=== PATIENT | male | born 1980 | race Caucasian/White ===

== ENCOUNTER 2023-10-04 08:41 | Outpatient (CLI) | payer MEDICAID, SELFPAY ==
--- NOTE | 2023-10-04 08:45 | MR_ITS ---
WS: [id number] MRI BRAIN WITHOUT CONTRAST HISTORY: R56.9 - Unspecified convulsions COMPARISON: None available. TECHNIQUE: Diffusion imaging, multiplanar T1, T2 and FLAIR imaging obtained. Diffusion imaging is normal. Areas of gliosis and volume loss in the anterior medial frontal lobes bi laterally. Slightly greater increased T2 signal involving the RIGHT frontal lobe. No associated hemos iderin. No additional infarcts. Mild small vessel ischemic type changes. Increased focal area of T2 signal in the medial RIGHT temporal lobe. No cerebellar ischemic changes. Ventricles and extra-axial spaces are normal. No inferior displacement of cerebellar tonsils. The sella turcica and pituitary gland are unremarkabl e. Dural venous sinuses and [place] demonstrate no abnormality on this unenhanced studies. Paranasal sinuses: Mild mucoperiosteal thickening in the maxillary sinuses no air-fluid levels. Mastoid air cells: Normal. Calvarium and scalp: Intact. IMPRESSION: 1. No acute infarcts or diffusion abnormalities. 2. Bilateral mild volume loss and gliosis in the anterior medial frontal lobes. Mid this is likely f rom prior trauma due to its location and appearance. 3. Focal area of increased T2 signal in the medial RIGHT temporal lobe near the hippocampus. No volu me loss or other abnormality.
== END 2023-10-04 08:42 | disposition home or self-care (01) ==
PROVIDERS: Visit Provider Specialist
DX: G40.309 Generalized idiopathic epilepsy and epileptic syndromes, not intractable, without status epilepticus (principal); G93.89 Other specified disorders of brain
CPT/HCPCS: 70551

== ENCOUNTER → 2024-02-02 09:26 | Outpatient (BNVA) | payer MEDICAID, SELFPAY | PROVIDERS: Referring Provider Specialist; Visit Provider Physician Assistant | DX: G56.03 Carpal tunnel syndrome, bilateral upper limbs (principal); G56.22 Lesion of ulnar nerve, left upper limb | CPT/HCPCS: 73110 ==

== ENCOUNTER 2024-02-15 09:21 | Day surgery (SDC) | payer MEDICAID, SELFPAY ==
[2024-02-15] VITALS (12 sets, daily range): BP systolic 144–191; BP diastolic 96–127; PULSE 61–93; RESP 14–18; TEMP 36.1–36.6; O2SAT 96–100; BMI 20.7
[2024-02-15] MEDS: acetaminophen 1,000 MG/100 ML PIGGYBACK 400 MG IV (10:03)
[2024-02-15] MEDS: sodium chloride 0.9% 1,000 ML 30 ML IV (10:03)
[2024-02-15] MEDS: ketorolac 30 mg/mL INJ IVP (10:04)
--- NOTE | 2024-02-15 10:22 | SUR.PREOP ---
patient states he had an allergic reaction to PCN as a child but does not recall what the reaction was. patient states he has taken keflex as an adult with no problems.
--- NOTE | 2024-02-15 10:23 | W.PM.OPSUD ---
Surgery/Procedure H&P Update DATE OF PROCEDURE: February 15, 2024 DATE H&P PERFORMED: 02/02/24 H&P UPDATE INFORMATION: I have reviewed H&P completed within last 30 days, I have examined patient prior to procedure and No changes to prior documentation PREOP DIAGNOSIS: Left cubital tunnel syndrome, left carpal tunnel syndrome PRIMARY INDICATION FOR PROCEDURE: Left carpal tunnel syndrome, left cubital tunnel syndrome PLANNED PROCEDURE: Operation Date: 02/15/24 10:55 Proposed Procedures p Carpal Tunnel Release(Left) - DO yvon Junior Cubital Tunnel Release(Left) - DO yvon Junior Ulnar Nerve Transposition/ possible(Left) - Issac Blunt DO
--- NOTE | 2024-02-15 10:34 | P.ANESASSM_ITS ---
Pre-Anesthetic Assessment Height/Weight: Height 1.85 m Weight 71.214 kg Temp Pulse Resp BP Pulse Ox O2 Del Method 97.9 F 78 18 144/100 98 Room Air 02/15/24 10:12 02/15/24 10:12 02/15/24 10:12 02/15/24 10:12 02/15/24 10:12 02/15/24 10:12 Preop Diagnosis: Left cubital tunnel syndrome, left carpal tunnel syndrome Operation Date: 02/15/24 10:55 Proposed Procedures p Carpal Tunnel Release(Left) - Issac Merlene, DO s Cubital Tunnel Release(Left) - Issac [place], DO s Ulnar Nerve Transposition/ possible(Left) - Issac [place], DO Familial anesthetic complications: none Was Beta Uzair taken within 24 hours: N/A Was Clonidine taken within 24 hours: N/A Last intake: Intake Last Liquid Date 02/14/24 Last Liquid Time 21:00 Last Solid Date 02/14/24 Last Solid Time 21:00 Social Alcohol (Daily) and Tobacco Exam alert, oriented x 3 and regular rate & rhythm Airway Submandibular: within normal limits Cervical ROM: within normal limits Mallampati: Class II Dentition: false Pulmonary Chronic Obstructive Pulmonary Disease Neuropsych Seizure Anesthetic Plan ASA status: 3 Anesthesia: General Medications/Allergies Home Medications Medication Instructions Recorded Confirmed Last Taken Type lamotrigine 100 mg tablet,extended 100 mg PO DAILY #30 tabs 12/16/23 02/14/24 02/15/24 Rx release 24 hr (Lamictal XR) levetiracetam 750 mg 1,500 mg (2 x 750 mg) PO DAILY 12/16/23 02/14/24 02/15/24 Rx tablet,extended release 24 hr #240 tabs (Keppra XR) Allergies Allergy/AdvReac Type Severity Reaction Status Date / Time Penicillins Allergy Intermediate Unknown Verified 02/15/24 09:50 Current Medications Generic Name Dose Route Start Last Admin Trade Name Freq PRN Reason Stop Dose Admin Sodium Chloride 1,000 mls @ 30 mls/hr 02/15/24 10:00 02/15/24 10:03 Sodium Chloride 0.9% IV 02/16/24 09:59 30 mls/hr .Q24H HARMEET Administration PFSH Anesthesia Social History Smoking and tobacco/nicotine status: current every day tobacco/nicotine user cigarettes Second hand smoke exposure: Yes Alcohol intake: current Alcohol type: beer Substance/Drug Use: current Data Anesthesia Cardiac Studies: No Data to Display
[2024-02-15] MEDS: ceFAZolin 2,000 MG in sodium chloride 0.9% (plus) 50 ML 100 MG IV (10:39)
[2024-02-15] MEDS: lidocaine-epi 1% 20 mL INJ INJECTION (11:12)
[2024-02-15] MEDS: ROPivacaine 0.5% SDV 30 mL 150 MG INJECTION (11:12)
--- NOTE | 2024-02-15 12:09 | W.PM.BPON ---
Date of Procedure: [02/15/2024] Surgeon: Issac Blunt DO Stone Operator(s): None Procedure(s) performed: Left carpal tunnel release Left cubital tunnel release (decompression ulnar nerve at the elbow) Left ulnar nerve transposition with neurolysis Findings of the procedure(s): Patient found to have left carpal tunnel syndrome left cubital tunnel syndrome as well as a unstable/subluxating ulnar nerve and as result underwent left carpal tunnel release left cubital tunnel release with ulnar nerve transposition without any issues or complications Maribel drain placed will get into OT hand therapy for drain pull within the next 2 days. Maintain splint for a total of 10 to 14 days. Estimated blood loss: 15 mL Specimen(s) removed: None Post-operative diagnosis: Left carpal tunnel syndrome left cubital tunnel syndrome with subluxating ulnar nerve
--- NOTE | 2024-02-15 12:11 | PM.OP ---
Operative Report Date of procedure: February 15, 2024 Surgeon: Issac Blunt DO Procedure: Preoperative diagnosis: Left carpal tunnel syndrome Left cubital tunnel syndrome post-op diagnosis:? Left carpal tunnel syndrome and Left cubital tunnel syndrome and subluxating ulnar nerve Post-op findings: See operative note Procedure done: Left carpal tunnel release Left cubital tunnel release(ulnar nerve decompression) Left ulnar nerve?transposition and neurolysis Surgeon: Issac Blunt DO Estimated blood loss: 15 cc Tourniquet Time: 33 minutes IV fluids: See anesthesia record Complications: None Findings: See operative report narrative Condition: stable Disposition: same day Brief History: Patient is a pleasant 43-year-old Male was seen evaluated in the outpatient setting for Left ulnar nerve neuropathy at the elbow and Left carpal tunnel syndrome. Patient had NCS findings consistent with this.? ?On my examination in the office patient findings are consistent with this preoperative diagnosis. We had detailed discussion in office about continued nonoperative intervention versus operative intervention.? Patient understands the risk benefits complications alternatives to surgical and nonsurgical treatment options.? Patient understands the risks include but not limited to make it better, make it worse, infection, permanent injury to nerve, decreased function and sensation to the hand with persistent weakness.? Given these risks patient understands and agrees to proceed with current plan.? Patient elects to proceed with a surgical mention. All questions answered. Procedure: Patient was seen and evaluated in the preoperative holding area.? The consent that was filled out in office was reviewed with patient. Correct extremity was then marked.? Patient was seen evaluated by the preoperative team as well as anesthesia department.? Once cleared for surgery patient was then taken to the operative suite and transported onto the operative table all bony prominences were well-padded and patient was secured to the table.? Left upper extremity was placed on an armboard.? Patient then underwent anesthesia per the anesthesia department. The Left upper extremity tourniquet was applied. Patient's Left upper extremity was then prepped and draped in standard orthopedic fashion.? This point a final timeout was performed. Patient received appropriate preop antibiotics. Esmarch tourniquet was used to exsanguinate the operative extremity and was insufflated to 250 mmHg.? I started with the carpal tunnel release first.? I made a standard open carpal tunnel release starting with the distal most extent in the palm at the Escamilla's cardinal line and the incision line was made in line with the fourth ray and ended just distal to the wrist crease.? Sharp scalpel incision was made through skin and subcutaneous tissue I then utilizing self retainer then began to dissect with dissection scissors split longitudinally the palmar fascia.? Next I then utilizing my nurses medical assistants phlebotomists Janine retractors subsequently utilizing scalpel feathered through the palmaris brevis as well as through the transverse carpal ligament distally.? Once I encountered the floor of the transverse carpal ligament and entered into the carpal tunnel I then switched to dissection scissors.? Carefully released the distal extent of the transverse carpal ligament to the palmar fat.? Care was to protect the recurrent branch and not injured this during this part of the case.? Next I then placed a [place] underneath the transverse carpal ligament proximally to protect the nerve in the carpal tunnel contents.? And then I subsequently under loupe magnification utilize my dissection scissors to release the transverse carpal ligament into the antebrachial fascia under direct visualization with care to keep my scissors with a curved ulnarly away from the palmar cutaneous branch.? The transverse carpal was then completely decompressed proximally and a [place] was then placed both distally and proximally throughout the carpal tunnel and had complete decompression of the nerve.? The nerve did appear to have hourglass shape as it went through the carpal tunnel.? With significant irritation noted around the nerve.? No masses were noted within the contents of the carpal tunnel.? This completed the carpal tunnel release and then I subsequently irrigated the wound bed and placed a wet [place] into the incision for later closure. Standard curvilinear incision was made centering over the ulnar nerve between the medial epicondyle and olecranon process.? Sharp scalpel excision through skin and subcutaneous tissue was performed.? Once I encountered subcutaneous tissue I then utilized dissection scissors to spread in the path of the [facility] and care was made to protect any nerve branches throughout this case.? I then utilized a scalpel to complete my dissection directly on over to the flexor pronator mass and elevated this fat tissue directly off of the fascia.? I started my dissection of the ulnar nerve the nerve proximally.? Once identified I then utilized Littler dissection scissors and decompress the nerve completely and proximally and utilized blunt dissection to make sure there was no entrapment proximally..? Once decompressed proximally I then traced the nerve distal through Merritt's ligament and as it entered the FCU fascia aponeurosis and completed by decompression and ulnar nerve neurolysis distally.? The nerve was completely released in situ no areas of entrapment I was able to place my finger distally and proximally with no areas entrapment along the nerve.? At this point in time by in situ release was completed I then subsequently took the elbow through range of motion and subluxation was noted over the medial epicondyle and plan for ulnar nerve?transposition?was made.? ?I thoroughly irrigated the nerve throughout the case to prevent it from drying out. Of note the ulnar nerve had significant irritation and inflammation.? Next while protecting the nerve as well as care to not injure any venous structures I then excised the intermuscular septum proximally with bipolar electrocautery.? This allowed for there to be no entrapment proximally with my?transposition.? Next I then performed my standard Z- flap into the fascia.? This created a large thick fascial band that would be sutured to secure the ulnar nerve when its been transposed.? Once the incision was made just through the fascia I then mobilized just the fascia and freed the muscle belly off of this.? I then sequentially excised the T and Y shaped fascial bands throughout the flexor pronator mass to prevent any type of bandage strip structure irritating the?transposition.? At this point I had only soft tissue and muscle belly with which the ulnar nerve could rest.? I had to do a small excision of the muscle belly distally to create a nice trough for the nerve to lie.? At this point I then mobilized the nerve and this was transposed into the flexor pronator insertion under the fasica flaps.? There was no evidence of kinking/tethering of the nerve.? this was significantly redundant and lax with no signs of tension or entrapment.? I then utilized a 3-0 Ethibond suture and approximated the fascia flaps that was created and the Left knee okay okay secured with horizontal interrupted mattress stitches.? I was able to place 2 fingers under the repair with no evidence of entrapment and the elbow was taken through range of motion and no areas of entrapment or kinking were noted on the nerve and the nerve was redundant relaxed in all ranges of motion.? This completed my ulnar nerve decompression of the cubital tunnel as well as ulnar nerve?transposition.? Wound bed was then thoroughly irrigated.? Tourniquet was deflated.? Maintained exact hemostasis with bipolar electrocautery.? I did place a marina drain to prevent hematoma formation. As result the skin was reapproximated with interrupted Vicryl subcutaneous suture 3-0.? I next utilized a running horizontal mattress stitch with 3-0 nylon.? Extremity was then cleaned and the incision was then covered with Xeroform 4 x 4's ABD Curlex and soft roll and a cubital splint was then applied with an Jorden wrap.? Patient was then awakened from anesthesia and taken to PACU in stable condition. Disposition: Patient taken to PACU in stable condition.? Patient given appropriate discharge instructions as well as pain medication.? We will get Patient in with OT hand therapy for splint takedown dressing change and drain pull. Patient will see me in office in 2 weeks.? pt understands? if they has any questions they can contact the office.
[2024-02-15] MEDS: metoprolol tartrate 1 mg/1 mL SDV 5 mL 5 MG (12:35)
[2024-02-15] MEDS: HYDROcodone-acetaminophen 5-325 mg Tablet 1 TAB PO (13:16)
--- NOTE | 2024-02-15 15:18 | ANE.PACU2 ---
Inpatient post-anesthesia follow up: Airway intact: Yes Vital signs: Temperature 97.5 F Pulse Rate 61 Respiratory Rate 18 Blood Pressure 166/96 Pulse Oximetry 100 Oxygen Delivery Me thod Room Air Oxygen Flow Rate 6 Fraction of Inspir ed Oxygen Hydration adequate: Yes Nausea and vomiting: No Pain level: 3 Mental status: Baseline
== END 2024-02-15 13:25 | disposition home or self-care (01) ==
PROVIDERS: PCP Family Medicine; Visit Provider Student in an Organized Health Care Education/Training Program
PROC: (CPT 64721; principal; 2024-02-15 10:45)
PROC: (CPT 64718; 2024-02-15 10:45)
PROC: (CPT 64718; 2024-02-15 10:45)
DX: G56.02 Carpal tunnel syndrome, left upper limb (principal); G56.22 Lesion of ulnar nerve, left upper limb; J44.9 Chronic obstructive pulmonary disease, unspecified; F17.210 Nicotine dependence, cigarettes, uncomplicated
CPT/HCPCS: 64718; 64721; J0131; J0690; J1100; J1885; J2250; J2405; J2704; J2795; J3490; J7030

== ENCOUNTER 2024-02-17 12:11 | Outpatient (RCR) | payer MEDICAID, SELFPAY | END 2024-03-06 23:59 | disposition home or self-care (01) | LOC: SOT 12:11 | PROVIDERS: Visit Provider Student in an Organized Health Care Education/Training Program | DX: Z47.89 Encounter for other orthopedic aftercare (principal) | CPT/HCPCS: 97110; 97530; 97760; L3763 ==

== ENCOUNTER 2024-03-16 10:18 | Outpatient (RCR) | payer MEDICAID, SELFPAY | END 2024-04-06 23:59 | disposition home or self-care (01) | LOC: SOT 10:18 | PROVIDERS: Visit Provider Student in an Organized Health Care Education/Training Program | DX: Z47.89 Encounter for other orthopedic aftercare (principal) | CPT/HCPCS: 97110 ==

== ENCOUNTER 2024-07-19 07:29 | Day surgery (SDC) | payer MEDICAID, SELFPAY ==
[2024-07-19] VITALS (10 sets, daily range): BP systolic 125–158; BP diastolic 72–90; PULSE 58–79; RESP 16–18; TEMP 36.1–36.6; O2SAT 97–100; BMI 19.2
[2024-07-19] MEDS: scopolamine 1.5 Patch 1 PATCH TRANSDERMA (08:02)
[2024-07-19] MEDS: ketorolac 30 mg/mL INJ IVP (08:03)
[2024-07-19] MEDS: sodium chloride 0.9% 1,000 ML 30 ML IV (08:06)
[2024-07-19] MEDS: acetaminophen 1,000 MG/100 ML PIGGYBACK 400 MG IV (08:06)
--- NOTE | 2024-07-19 08:21 | P.ANESASSM_ITS ---
Pre-Anesthetic Assessment Height/Weight: Height 1.83 m Weight 64.41 kg Temp Pulse Resp BP Pulse Ox O2 Del Method 97.8 F 70 18 132/89 98 Room Air 07/19/24 07:46 07/19/24 07:46 07/19/24 07:46 07/19/24 07:46 07/19/24 07:46 07/19/24 07:46 Operation Date: 07/19/24 09:00 Proposed Procedures p Carpal Tunnel Release(Right) - Issac [place], DO s Cubital Tunnel Release(Right) - Issac Merlene, DO s Ulnar Nerve Transposition(Right) - Issac Hemphill, DO Familial anesthetic complications: None Was Beta Uzair taken within 24 hours: N/A Was Clonidine taken within 24 hours: N/A Last intake: Intake Last Liquid Date 07/18/24 Last Liquid Time 02:20 Last Solid Date 07/18/24 Last Solid Time 22:00 Social Alcohol (6 pack a beer a night) and Tobacco Exam alert, oriented x 3, clear to auscultation bilaterally and regular rate & rhythm Airway Mallampati: Class II Dentition: other (no teeth) Neuropsych Seizure (epilepsy - last seizure was months ago) Anesthetic Plan ASA status: 3 Anesthesia: General Risk of > 500 ml blood loss (7ml/kg in children): No Medications/Allergies Home Medications Medication Instructions Recorded Confirmed Last Taken Type lamotrigine 100 mg tablet,extended 100 mg PO DAILY #90 tabs 06/19/24 07/18/24 07/19/24 Rx release 24 hr (Lamictal XR) levetiracetam 750 mg 1,500 mg (2 x 750 mg) PO DAILY 06/19/24 07/18/24 07/19/24 Rx tablet,extended release 24 hr #180 tabs (Keppra XR) Allergies Allergy/AdvReac Type Severity Reaction Status Date / Time Penicillins Allergy Intermediate Unknown Verified 07/18/24 11:07 Current Medications Generic Name Dose Route Start Last Admin Trade Name Freq PRN Reason Stop Dose Admin Sodium Chloride 1,000 mls @ 30 mls/hr 07/19/24 07:45 07/19/24 08:06 Sodium Chloride 0.9% IV 07/20/24 07:44 30 mls/hr .Q24H HARMEET Administration PFSH Anesthesia Social History Smoking and tobacco/nicotine status: current every day tobacco/nicotine user (1 pack a day) cigarettes Second hand smoke exposure: Yes Alcohol intake: current Alcohol type: beer Substance/Drug Use: current Data Anesthesia Cardiac Studies: No Data to Display
--- NOTE | 2024-07-19 08:26 | W.PM.OPSFHP ---
Same Day Surgery H&P Indication for Procedure/HPI DATE OF PROCEDURE: July 19, 2024 CHIEF COMPLAINT/INDICATIONFOR SURGICAL PROCEDURE: Right carpal tunnel syndrome, right cubital tunnel syndrome PREOP DIAGNOSIS: Right carpal tunnel syndrome, right cubital tunnel syndrome PLANNED PROCEDURE: Operation Date: 07/19/24 09:00 Proposed Procedures p Carpal Tunnel Release(Right) - Issac [place], DO s Cubital Tunnel Release(Right) - Issac [place], DO s Ulnar Nerve Transposition(Right) - Issac Merlene, DO Medications/Allergies* Allergies/Adverse Reactions Allergy/AdvReac Type Severity Reaction Status Date / Time Penicillins Allergy Intermediate Unknown Verified 07/18/24 11:07 Current Medications: Generic Name Dose Route Start Last Admin Trade Name Freq PRN Reason Stop Dose Admin Sodium Chloride 1,000 mls @ 30 mls/hr 07/19/24 07:45 07/19/24 08:06 Sodium Chloride 0.9% IV 07/20/24 07:44 30 mls/hr .Q24H HARMEET Administration Pertinent History/Comorbid Conditions* Social History Smoking and tobacco/nicotine status: current every day tobacco/nicotine user (1 pack a day) cigarettes Second hand smoke exposure: Yes Alcohol intake: current Alcohol type: beer Substance/Drug Use: current Pertinent Exam Findings alert, oriented x 3, operative site marked and procedure specific exam findings Please refer to detailed orthopedic examination on 05/31/2024 listed below: Right side- Hand exam-Positive Tinel's and Positive Phalen's test. no thenar atrophy and no thenar muscle weakness. Full range of motion in fingers and wrist and fingers are warm and well-perfused with normal cap refill under 2 seconds. Radial pulse 2+, No intrinsic muscle weakness noted. Elbow exam-Positive Tinel's test Recommendations Surgery/Procedure today Other Plans: Plan to proceed to the OR today for right carpal tunnel release, right cubital tunnel release with possible nerve transposition. Patient had the procedure done left-sided and satisfied with his results at this time. Patient understands the ins and outs procedure as well as the risk benefits complication alternatives of surgery and through shared decision make elects proceed with surgical intervention. All questions been answered at this time. Will proceed with the OR today. Coding Level of Care Code Acute Code for [facility] Fwd
[2024-07-19] MEDS: ceFAZolin 2,000 MG in sodium chloride 0.9% (plus) 50 ML 100 MG IV (08:45)
[2024-07-19] MEDS: lidocaine-epi 1% 20 mL INJ INJECTION (10:01)
[2024-07-19] MEDS: ROPivacaine 0.5% SDV 30 mL 150 MG INJECTION (10:01)
--- NOTE | 2024-07-19 10:06 | PC.NURSE ---
marina drain used as a drain in right elbow
--- NOTE | 2024-07-19 10:15 | P.BOP_ITS ---
Date of Procedure: 07/19/2024 Surgeon: Issac Blunt DO Lead Systems Architect(s): None Procedure(s) performed: Right carpal tunnel release Right cubital tunnel release Right ulnar nerve transposition Findings of the procedure(s): Patient found to have right carpal tunnel syndrome right cubital tunnel syndrome underwent procedure as planned without issues or complications patient was found to have a subluxating ulnar nerve and underwent a ulnar nerve transposition of the right elbow as well. Placed in a splint. Taken to PACU in stable condition postoperatively. Will follow-up within the next day for Myron drain removal and dressing takedown Estimated blood loss: 15 mL Specimen(s) removed: None Post-operative diagnosis: Right carpal tunnel syndrome, right cubital tunnel syndrome with subluxating ulnar nerve
--- NOTE | 2024-07-19 10:15 | P.OP_ITS ---
Operative Report Date of procedure: July 19, 2024 Surgeon: Issac Blunt DO Procedure: Preoperative diagnosis: Right carpal tunnel syndrome Right?cubital tunnel syndrome post-op diagnosis:? 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 Patient had NCS findings consistent with this.? ?On my examination in the office patient findings are consistent with this preoperative diagnosis. We had detailed discussion in office about continued nonoperative intervention versus operative intervention.? Patient understands the risk benefits complications alternatives to surgical and nonsurgical treatment options.? Patient understands the risks include but not limited to make it better, make it worse, infection, permanent injury to nerve, decreased function and sensation to the hand with persistent weakness.? Given these risks patient understands and agrees to proceed with current plan.? Patient elects to proceed with a surgical intervention of a right carpal tunnel release and right cubital tunnel release with possible ulnar nerve transposition. All questions answered. Procedure: Patient was seen and evaluated in the preoperative holding area.? The consent that was filled out in office was reviewed with patient. Correct extremity was then marked.? Patient was seen evaluated by the preoperative team as well as anesthesia department.? Once cleared for surgery patient was then taken to the operative suite and transported onto the operative table all bony prominences were well-padded and patient was secured to the table.? Right upper extremity was placed on an armboard.? Patient then underwent anesthesia per the anesthesia department. The Right upper extremity tourniquet was applied. Patient's Right upper extremity was then prepped and draped in standard orthopedic fashion.? This point a final timeout was performed. Patient received appropriate preop antibiotics. Esmarch tourniquet was used to exsanguinate the operative extremity and was insufflated to 250 mmHg.? I started with the carpal tunnel release first.? I made a standard open carpal tunnel release starting with the distal most extent in the palm at the Escamilla's cardinal line and the incision line was made in line with the fourth ray and ended just distal to the wrist crease.? Sharp scalpel incision was made through skin and subcutaneous tissue I then utilizing self retainer then began to dissect with dissection scissors split longitudinally the palmar fascia.? Next I then utilizing my food and nutrition services assistant Janine retractors subsequently utilizing scalpel feathered through the palmaris brevis as well as through the transverse carpal ligament distally.? Once I encountered the floor of the transverse carpal ligament and entered into the carpal tunnel I then switched to dissection scissors.? Carefully released the distal extent of the transverse carpal ligament to the palmar fat.? Care was to protect the recurrent branch and not injured this during this part of the case.? Next I then placed a Kimberly underneath the transverse carpal ligament proximally to protect the nerve in the carpal tunnel contents.? And then I subsequently under loupe magnification utilize my dissection scissors to release the transverse carpal ligament into the antebrachial fascia under direct visualization with care to keep my scissors with a curved ulnarly away from the palmar cutaneous branch.? The transverse carpal was then completely decompressed proximally and a Kimberly was then placed both distally and proximally throughout the carpal tunnel and had complete decompression of the nerve.? The nerve did appear to have hourglass shape as it went through the carpal tunnel.? With significant irritation noted around the nerve.? No masses were noted within the contents of the carpal tunnel.? This completed the carpal tunnel release and then I subsequently irrigated the wound bed and placed a wet Ray-Jeannie into the incision for later closure. Standard curvilinear incision was made centering over the ulnar nerve between the medial epicondyle and olecranon process.? Sharp scalpel excision through skin and subcutaneous tissue was performed.? Once I encountered subcutaneous t issue I then utilized dissection scissors to spread in the path of the [facility] and care was made to protect any nerve branches throughout this case.? I then utilized a scalpel to complete my dissection directly on over to the flexor pronator mass and elevated this fat tissue directly off of the fascia.? I started my dissection of the ulnar nerve the nerve proximally.? Once identified I then utilized Littler dissection scissors and decompress the nerve completely and proximally and utilized blunt dissection to make sure there was no entrapment proximally..? Once decompressed proximally I then traced the nerve distal through Merritt's ligament and as it entered the FCU fascia aponeurosis and completed by decompression and ulnar nerve neurolysis distally.? The nerve was completely released in situ no areas of entrapment I was able to place my finger distally and proximally with no areas entrapment along the nerve.? At this point in time by in situ release was completed I then subsequently took the elbow through range of motion and subluxation was noted over the medial epicondyle and plan for ulnar nerve?transposition?was made.? ?I thoroughly irrigated the nerve throughout the case to prevent it from drying out. Of note the ulnar nerve had significant irritation and inflammation.? Next while protecting the nerve as well as care to not injure any venous structures I then excised the intermuscular septum proximally with bipolar electrocautery.? This allowed for there to be no entrapment proximally with my?transposition.? Next I then performed my standard Z- flap into the fascia.? This created a large thick fascial band that would be sutured to secure the ulnar nerve when its been transposed.? Once the incision was made just through the fascia I then mobilized just the fascia and freed the muscle belly off of this.? I then sequentially excised the fascial bands throughout the flexor pronator mass to prevent any type of banded structures irritating the?transposition.? At this point I had only soft tissue and muscle belly with which the ulnar nerve could rest.? I had to do a small excision of the muscle belly distally to create a nice trough for the nerve to lie.? At this point I then mobilized the nerve and this was transposed into the flexor pronator insertion under the fasica flaps.? There was no evidence of kinking/tethering of the nerve.? this was significantly redundant and lax with no signs of tension or entrapment.? I then utilized a 3-0 Ethibond suture and approximated the fascia flaps that was created and the Right knee okay okay secured with horizontal interrupted mattress stitches.? I was able to place 2 fingers under the repair with no evidence of entrapment and the elbow was taken through range of motion and no areas of entrapment or kinking were noted on the nerve and the nerve was redundant relaxed in all ranges of motion.? This completed my ulnar nerve decompression of the?cubital tunnel as well as ulnar nerve?transposition.? Wound bed was then thoroughly irrigated.? Tourniquet was deflated.? Maintained exact hemostasis with bipolar electrocautery.? I did place a marina drain to prevent hematoma formation. As result the skin was reap proximated with interrupted Vicryl subcutaneous suture 3-0.? I next utilized a running horizontal mattress stitch with 3-0 nylon.? Extremity was then cleaned and the incision was then covered with Xeroform 4 x 4's ABD Curlex and soft roll and a?cubital splint was then applied with an Jorden wrap.? Patient was then awakened from anesthesia and taken to PACU in stable condition. Disposition: Patient taken to PACU in stable condition.? Patient given appropriate discharge instructions as well as pain medication.? We will get Patient in with OT hand therapy for splint takedown dressing change and drain pull. Patient will see me in office in 2 weeks.? pt understands? if they has any questions they can contact the office.
--- NOTE | 2024-07-19 12:00 | ANE.PACU2 ---
Inpatient post-anesthesia follow up: Airway intact: Yes Vital signs: Temperature 97.1 F Pulse Rate 61 Respiratory Rate 18 Blood Pressure 132/85 Pulse Oximetry 99 Oxygen Delivery Me thod Room Air Oxygen Flow Rate Fraction of Inspir ed Oxygen Hydration adequate: Yes Nausea and vomiting: No Pain level: 1 Mental status: Baseline
== END 2024-07-19 12:00 | disposition home or self-care (01) ==
PROVIDERS: PCP Pediatrics; Visit Provider Student in an Organized Health Care Education/Training Program
PROC: (CPT 64721; principal; 2024-07-19 09:00)
PROC: (CPT 64718; 2024-07-19 09:00)
PROC: (CPT 64718; 2024-07-19 09:00)
DX: G56.01 Carpal tunnel syndrome, right upper limb (principal); G56.21 Lesion of ulnar nerve, right upper limb; F17.210 Nicotine dependence, cigarettes, uncomplicated
CPT/HCPCS: 64718; 64721; J0131; J0690; J1100; J1885; J2250; J2405; J2704; J2795; J3010; J7030